=== PATIENT | female | born 1965 | race Caucasian/White ===

== ENCOUNTER 2023-10-03 14:15 | Emergency (ER) | payer MEDICARE ==
[~2023-10-03] VITALS: Ht 165.1 cm; Wt 63.0 kg
[2023-10-03 14:30] VITALS: BP 116/71; PULSE 74; O2SAT 98
[2023-10-03] MEDS: dexamethasone sod phosphate 10mg/ml inj IM STA (16:04)
[2023-10-03] MEDS ORDERED: ALBU8HFA INH (16:29)
[2023-10-03] MEDS ORDERED: PRED20TA PO (16:29)
[2023-10-03] MEDS ORDERED: AZIT250T83 PO (16:29)
[2023-10-03] MEDS ORDERED: LORA-269 PO (16:29)
[2023-10-03 16:46] VITALS: RESP 17; TEMP 99.5
== END 2023-10-03 16:50 | disposition home or self-care (01) ==
LOC: ER 14:16
DX: J06.9 Acute upper respiratory infection, unspecified (principal); M54.6 Pain in thoracic spine; R45.86 Emotional lability
CPT/HCPCS: 96372; 99283; J1100; J7030

== ENCOUNTER 2024-10-02 10:36 | Emergency (ER) | payer MEDICARE, MEDICAID ==
[~2024-10-02] VITALS: Ht 167.6 cm; Wt 70.0 kg
[~2024-10-02 10:36] MED LIST: LORA-269 PO
[2024-10-02 10:53] VITALS: BP 101/59; PULSE 75; RESP 16; TEMP 99.6; O2SAT 95
--- NOTE | 2024-10-02 10:58 | Physician Documentation ---
History of Present Illness ~ Stated Complaint: POST OP COMPLICATIONS Time Seen by MD: 10:58 OK to notify your PCP?: Yes Source: patient Mode of Arrival: POV Exam Limitations: no limitations HPI 59 y/o female with c/o discoloration to left foot and toes. Patient had surgery with Dr. Campos on 09/16/24. She states she noticed the discoloration on her 4th and 5th toes a few days ago. States they did not say anything in the post op about purple toes. Pain at foot is 6/10 since having surgery 2weeks ago. No taking any pain medications. Tetanus witin 5 years: No Medication Reconciliation Allergies: Coded Allergies: No Known Allergies (Unverified , 10/03/23) Scheduled Lorazepam (Ativan), 1 TAB PO Q8H Past Medical History Past Medical History: No Pertinent History Review of Systems All Other Systems at this time: Reviewed and Negative Physical Exam Physical Exam General Appearance: Alert, WD/WN. APPEARS ANXIOUS, AMBULATING IN WALKING BOOT WITH WALKER. HEENT: NCAT, PERRL, EOMI. Neck: Supple, trachea midline. Lungs: Breathing unlabored Neurological: Alert and oriented x4 Psychiatric: Affect congruent with mood. LEFT FOOT: very minimal ecchymosis at 4th and 5th toes, cap refill at toes <2seconds. No erythema. arom of toes is full. Medical Decision Making Toe Diff Dx:Considerations: Include: Abrasion, Cellulitis, Contusion, Dislocation, Felon, Fracture, Hematoma, Laceration, Neurovascular injury, Open fracture, Paronychia, Subungual hematoma, Other Departure Time of Disposition: 11:00 Disposition: 01 HOME / SELF CARE / HOMELESS Impression: Primary Impression: Bruise of toe Condition: Stable Additional Instructions: NO EVIDENCE OF VASCULAR ISSUE THE DISCOLORATION IS CONSISTENT WITH BRUISING F/U WITH DR. CAMPOS SCHEDULED Referrals: NO PRIMARY CARE PROVIDER (PCP) Education Educated: Patient Educated regarding: diagnosis, treatment, need for follow up Additional Comment Medical Screen Exam 59 y/o female with c/o discoloration to left foot and toes. Patient had surgery with Dr. Campos on 09/16/24. She states she noticed the discoloration on her 4th and 5th toes a few days ago. States they did not say anything in the post op about purple toes. PEx: LEFT FOOT: very minimal ecchymosis at 4th and 5th toes, cap refill at toes <2seconds. No erythema. arom of toes is full. a/p: 1. Ecchymosis toes. Normal. Patient is stable. No evidence for vascular pro blem. Reassurance provided. Signature Scribe Signature: x Attestation: SARITHA HER October 02, 2024 10:58
[2024-10-02] MEDS: acetaminophen 325mg tablet PO ONE (11:18)
== END 2024-10-02 11:21 | disposition home or self-care (01) ==
LOC: ER 10:37
DX: S90.122A Contusion of left lesser toe(s) without damage to nail, initial encounter (principal); X58.XXXA Exposure to other specified factors, initial encounter; Y93.89 Activity, other specified; Y92.89 Other specified places as the place of occurrence of the external cause; Y99.8 Other external cause status
CPT/HCPCS: 99282